=== PATIENT | male | born 1985 | race Caucasian/White ===

== ENCOUNTER 2017-07-21 23:52 | Inpatient (IN) | payer BC ==
[2017-07-22] MEDS ORDERED: Ondansetron 4 MG/2 ML SDV IVPUSH ONE (00:04)
[2017-07-22] MEDS ORDERED: Ketorolac 30 MG/ML SDV IVPUSH ONE (00:04)
[2017-07-22] MEDS ORDERED: Sodium Chloride 0.9% 1,000 ML IV ONE (00:04)
[2017-07-22 00:26] LABS: CHLORIDE,CL 105 mmol/L (98-107); SODIUM,NA 139 mmol/L (136-148)
[2017-07-22] MEDS ORDERED: HYDROmorphone 1 MG/ML Syringe IVPUSH ONE (00:55)
[2017-07-22] MEDS ORDERED: metroNIDAZOLE/Normal Saline 500 MG in Premix Bag 1 BAG IV ONE (00:56)
[2017-07-22] MEDS ORDERED: Levofloxacin/Dextrose 5%-Water 750 MG in Premix Bag 1 BAG IV ONE (01:00)
--- NOTE | 2017-07-22 01:01 | EDM.PDOC ---
ED HPI GENERAL MEDICAL PROBLEM - General Chief Complaint: Abdominal Pain Stated Complaint: STOMACH PAIN Time Seen by Provider: 07/22/17 01:01 - History of Present Illness INITIAL COMMENTS - FREE TEXT/NARRATIVE: HISTORY AND PHYSICAL: History of present illness: Patient 31-year-old male presents with concern of upper abdominal pain worse over the last 24 hours patient has associated nausea vomiting denies diarrhea denies fever chills denies urinary symptoms Review of systems: As per history of present illness and below otherwise all systems reviewed and negative. Past medical history: As per history of present illness and as reviewed below otherwise noncontributory. Surgical history: As per history of present illness and as reviewed below otherwise noncontributory. Social history: No reported history of drug or alcohol abuse. Family history: As per history of present illness and as reviewed below otherwise noncontributory. Physical exam: HEENT: Atraumatic, normocephalic, pupils reactive, negative for conjunctival pallor or scleral icterus, mucous membranes moist, throat clear, neck supple, nontender, trachea midline. Lungs: Clear to auscultation, breath sounds equal bilaterally, chest nontender. Heart: S1S2, regular, negative for clicks, rubs, or JVD. Abdomen: Soft, nondistended, tenderness in epigastric and right upper quadrant deep palpation no rebound no guarding. Negative for masses or hepatosplenomegaly. Negative for costovertebral tenderness. Pelvis: Stable nontender. Genitourinary: Deferred. Rectal: Deferred. Extremities: Atraumatic, negative for cords or calf pain. Neurovascular unremarkable. Neuro: Awake, alert, oriented. Cranial nerves II through XII unremarkable. Cerebellum unremarkable. Motor and sensory unremarkable throughout. Exam nonfocal. Diagnostics: CBC CMP UA lipase CT of the pelvis Therapeutics: Normal saline 1 L bolus and Toradol 30 mg IV Dilaudid 1 mg IV Levaquin 750 IV Flagyl 500 IV Impression: #1 abdominal pain #2 leukocytosis #3 cholelithiasis rule out cholecystitis Definitive disposition and diagnosis as appropriate pending reevaluation and review of above. Upper Abdomen Pain Score (Numeric/FACES): 10 - Related Data Allergies Allergy/AdvReac Type Severity Reaction Status Date / Time No Known Allergies Allergy Verified 07/21/17 23:56 Home Meds: Home Meds . [No Known Home Meds] 07/21/17 [History] Past Medical History - Past Health History Medical/Surgical History: Denies Medical/Surgical History Social & Family History - Family History Family Medical History: Noncontributory - Tobacco Use Smoking Status *Q: Current Every Day Smoker Years of Tobacco use: 10 Packs/Tins Daily: 0.5 - Caffeine Use Caffeine Use: Reports: None - Recreational Drug Use Recreational Drug Use: No ED ROS GENERAL - Review of Systems Review Of Systems: ROS reveals no pertinent complaints other than HPI. ED EXAM, GENERAL - Physical Exam Exam: See Below (See dictation) Course - Vital Signs Last Recorded V/S: Last Vital Signs Temp 36.1 C 07/21/17 23:54 Pulse 100 07/21/17 23:54 Resp 24 H 07/21/17 23:54 BP 129/86 07/21/17 23:54 Pulse Ox 99 07/21/17 23:54 - Orders/Labs/Meds Orders: Active Orders 24 hr Category Date Time Status Abdomen Pelvis wo Cont [CT] Stat Exams 07/22/17 00:03 Taken UA W/MICROSCOPIC [URIN] Stat Lab 07/22/17 00:40 Ordered Sodium Chloride 0.9% [Normal Saline] 1,000 ml Med 07/22/17 00:04 Active IV .Bolus Medication Orders Sodium Chloride (Normal Saline) 1,000 mls @ 999 mls/hr IV .Bolus ONE Stop: 07/22/17 01:04 Last Admin: 07/22/17 00:12 Dose: 999 mls/hr Labs: Laboratory Tests 07/22/17 07/22/17 07/22/17 Range/Units 00:01 00:01 00:40 WBC 14.20 H (4.0-11.0) K/uL RBC 5.13 (4.50-5.90) M/uL Hgb 16.5 (13.0-17.0) g/dL Hct 48.2 (38.0-50.0) % MCV 94.0 (80.0-98.0) fL MCH 32.2 H (27.0-32.0) pg MCHC 34.2 (31.0-37.0) g/dL RDW Std Deviation 48.7 (28.0-62.0) fl RDW Coeff of [place] 14 (11.0-15.0) % Plt Count 387 (150-400) K/uL MPV 10.00 (7.40-12.00) fL Neut % (Auto) 54.7 (48.0-80.0) % Lymph % (Auto) 34.2 (16.0-40.0) % [place] % (Auto) 8.7 (0.0-15.0) % Eos % (Auto) 2.1 (0.0-7.0) % Baso % (Auto) 0.3 (0.0-1.5) % Neut # (Auto) 7.8 H (1.4-5.7) K/uL Lymph # (Auto) 4.9 H (0.6-2.4) K/uL [place] # (Auto) 1.2 H (0.0-0.8) K/uL Eos # (Auto) 0.3 (0.0-0.7) K/uL Baso # (Auto) 0.0 (0.0-0.1) K/uL Nucleated RBC % 0.0 /100WBC Nucleated RBCs # 0 K/uL Sodium 139 (136-148) mmol/L Potassium 4.1 (3.5-5.1) mmol/L Chloride 105 (98-107) mmol/L Carbon Dioxide 25.8 (21.0-32.0) mmol/L BUN 12 (7.0-18.0) mg/dL Creatinine 1.2 (0.8-1.3) mg/dL Est Cr Clr Drug Dosing TNP Estimated GFR (MDRD) > 60.0 ml/min Glucose 107 H (74-106) mg/dL Calcium 9.4 (8.5-10.1) mg/dL Total Bilirubin 0.4 (0.2-1.0) mg/dL AST 18 (15-37) IU/L ALT 35 (14-63) IU/L Alkaline Phosphatase 111 (46-116) U/L Total Protein 7.5 (6.4-8.2) g/dL Albumin 3.9 (3.4-5.0) g/dL Globulin 3.6 H (2.0-3.5) g/dL Albumin/Globulin Ratio 1.1 L (1.3-2.8) Urine Color YELLOW Urine Appearance SLT CLOUDY Urine pH 8.0 (5.0-8.0) Ur Specific [place] 1.015 (1.001-1.035) Urine Protein NEGATIVE (NEGATIVE) mg/dL Urine Glucose (UA) NEGATIVE (NEGATIVE) mg/dL Urine Ketones NEGATIVE (NEGATIVE) mg/dL Urine Occult Blood NEGATIVE (NEGATIVE) Urine Nitrite NEGATIVE (NEGATIVE) Urine Bilirubin NEGATIVE (NEGATIVE) Urine Urobilinogen 0.2 (<2.0) EU/dL Ur Leukocyte Esterase NEGATIVE (NEGATIVE) Meds: Medications Generic Name Dose Route Start Last Admin Trade Name Freq PRN Reason Stop Dose Admin Sodium Chloride 1,000 mls @ 999 mls/hr 07/22/17 00:04 07/22/17 00:12 Normal Saline IV 07/22/17 01:04 999 mls/hr .Bolus ONE Administration Discontinued Medications Generic Name Dose Route Start Last Admin Trade Name Freq PRN Reason Stop Dose Admin Ketorolac Tromethamine 30 mg 07/22/17 00:04 07/22/17 00:12 Toradol IVPUSH 07/22/17 00:05 30 mg ONETIME ONE Administration Ondansetron HCl 4 mg 07/22/17 00:04 07/22/17 00:12 Zofran IVPUSH 07/22/17 00:05 4 mg ONETIME ONE Administration Departure - Departure Time of Disposition: 01:01 Disposition: Admitted As Inpatient 66 Condition: Good Clinical Impression: Abdominal pain, Leukocytosis, Cholelithiasis - Discharge Information Referrals: PCP,None [Primary Care Provider] - - My Orders Last 24 Hours: My Active Orders 07/22/17 00:03 Abdomen Pelvis wo Cont [CT] Stat 07/22/17 00:04 Sodium Chloride 0.9% [Normal Saline] 1,000 ml IV .Bolus 07/22/17 00:40 UA W/MICROSCOPIC [URIN] Stat - Assessment/Plan Last 24 Hours: My Active Orders 07/22/17 00:03 Abdomen Pelvis wo Cont [CT] Stat 07/22/17 00:04 Sodium Chloride 0.9% [Normal Saline] 1,000 ml IV .Bolus 07/22/17 00:40 UA W/MICROSCOPIC [URIN] Stat
[2017-07-22] MEDS ORDERED: HYDROmorphone 2 MG/ML SDV IVPUSH PRN (02:24)
[2017-07-22] MEDS: Morphine 4 MG/ML Syringe IVPUSH PRN ×2 (02:37→09:13)
[2017-07-22] MEDS: Lactated Ringers 1,000 ML IV SCH ×2 (02:38→11:57)
[2017-07-22 06:58] LABS: CHLORIDE,CL 108 mmol/L (98-107); SODIUM,NA 138 mmol/L (136-148)
[2017-07-22] MEDS ORDERED: metroNIDAZOLE/Normal Saline 500 MG in Premix Bag 1 BAG IV SCH (08:00)
--- NOTE | 2017-07-22 08:24 | PCM.HP ---
H&P History of Present Illness - General Date of Service: 07/22/17 Admit Problem/Dx: Admission Diagnosis/Problem Admission Diagnosis/Problem Abdominal pain Source of Information: Patient History Limitations: Reports: No Limitations - History of Present Illness Initial Comments - Free Text/Narative: This 31 year old male who is otherwise healthy presented to the ED last evening with sudden onset of epigastric pain and RUQ pain. He reports he has never had this before. He ate supper around 7 pm, which consisted of beef. He then showered and was getting ready to bed when this occurred. It did not radiate, it was sharp in nature and mainly located in his epigastric region. He reported vomiting food contents, he feels like from the pain. No other abdominal pain, no black or bloody BMs and no bloody or coffee ground emesis. He reports intermittent heartburn with spicy foods, but nothing significant or daily. He denies heavy NSAID use and no alcohol use. He denies abdominal surgeries or IBD. He denies fevers, URI, chest pain, SOB or troubles urinating. He smokes 1/ 2 ppd cigarettes for about 10 years. No recreational drug use. In the ED slight leukocytosis noted at 14,000, BMP WNL, No elevated in LFTs UA negative. He was treated with Levaquin and Flagyl along with NS bolus. CT of abdomen/pelvis revealed nonobstructive intrarenal calculus within the inferior pole of the right kidney, Cholelithiasis, Moderate amount of stool, Fat containing umbilical hernia. he was admitted inpatient with abdominal pain with cholelithiasis rule out cholecystitis. Upper Abdomen Pain Score (Numeric/FACES): 6 - Related Data Allergies/Adverse Reactions: Allergies Allergy/AdvReac Type Severity Reaction Status Date / Time No Known Allergies Allergy Verified 07/21/17 23:56 Home Medications: Home Meds Acetaminophen/HYDROcodone [[place] 325-5 MG] 1 tab PO Q6H PRN #10 tablet 07/22/17 [Rx] Levofloxacin [Levaquin] 500 mg PO DAILY #5 tab 07/22/17 [Rx] Pantoprazole Sodium [Protonix] 20 mg PO DAILY #30 tablet. 07/22/17 [Rx] Past Medical History - Past Health History Medical/Surgical History: Denies Medical/Surgical History Cardiovascular History: Reports: None. Denies: CAD, High Cholesterol, Hypertension, [place] Respiratory History: Reports: None. Denies: COPD Gastrointestinal History: Reports: None. Denies: Bowel Obstruction, Chronic Constipation, Chronic Diarrhea, GERD, GI Bleed Genitourinary History: Reports: None Musculoskeletal History: Reports: None Psychiatric History: Reports: None Endocrine/Metabolic History: Denies: Diabetes, Type II - Infectious Disease History Infectious Disease History: Reports: Chicken Pox - Past Surgical History Other HEENT Surgeries/Procedures: wears reading glasses Social & Family History - Family History Family Medical History: Noncontributory Neurological: Reports: Other (See Below) Other Neurological Family History: Father-brain tumor Psychiatric: Reports: None Oncologic: Reports: Lung Other Oncologic Family History: mother - Tobacco Use Smoking Status *Q: Current Every Day Smoker Years of Tobacco use: 10 Packs/Tins Daily: 0.5 Used Tobacco, but Quit: No Second Hand Smoke Exposure: Yes - Caffeine Use Caffeine Use: Reports: None - Recreational Drug Use Recreational Drug Use: No - Living Situation & Occupation Occupation: Employed (Here working, orginally from [employer] and [employer].) H&P Review of Systems - Review of Systems: Review Of Systems: See Below General: Reports: No Symptoms. Denies: Fever, Chills, Malaise HEENT: Reports: No Symptoms. Denies: Headaches, Sinus Congestion, Vertigo Pulmonary: Reports: No Symptoms. Denies: Shortness of Breath Cardiovascular: Reports: No Symptoms. Denies: Chest Pain, Edema Gastrointestinal: Denies: Abdominal Pain (not currently having any, very little tenderness), Decreased Appetite, Nausea, Vomiting Genitourinary: Reports: No Symptoms. Denies: Dysuria, Frequency, Burning Musculoskeletal: Reports: No Symptoms. Denies: Neck Pain Skin: Reports: No Symptoms Psychiatric: Reports: No Symptoms Neurological: Reports: No Symptoms Hematologic/Lymphatic: Reports: No Symptoms Immunologic: Reports: No Symptoms Exam - Exam Exam: See Below - Vital Signs Vital Signs: Last Vital Signs Temp 97.9 F 07/22/17 04:00 Pulse 83 07/22/17 04:00 Resp 19 07/22/17 04:00 BP 97/59 L 07/22/17 04:00 Pulse Ox 96 07/22/17 04:00 Weight: 68.901 kg - Exam General: Alert, Oriented, Cooperative HEENT: Conjunctiva Clear, Mucosa Moist & [place], Posterior Pharynx Clear Neck: Supple, Trachea Midline, 2 Lungs: Clear to Auscultation, Normal Respiratory Effort Cardiovascular: Regular Rate, Regular Rhythm GI/Abdominal Exam: Normal Bowel Sounds, Soft, No Organomegaly, No Distention, No Abnormal Bruit, No Mass, Pelvis Stable, Tender (epigastric) Back Exam: Normal Inspection, Full Range of Motion, NT Extremities: Normal Inspection, Normal Range of Motion, Non-Tender, No Pedal Edema, Normal Capillary Refill Neurological: Cranial Nerves Intact, Reflexes Equal Bilateral Neuro Extensive - Mental Status: Alert, Oriented x3, Normal Mood/Affect, Normal Cognition Neuro Extensive - Motor, Sensory, Reflexes: CN II-XII Intact Psychiatric: Alert, Normal Affect, Normal Mood - Patient Data Lab Results Last 24 hrs: Laboratory Results - last 24 hr 07/22/17 07/22/17 07/22/17 Range/Units 00:01 00:01 00:01 WBC 14.20 H (4.0-11.0) K/uL RBC 5.13 (4.50-5.90) M/uL Hgb 16.5 (13.0-17.0) g/dL Hct 48.2 (38.0-50.0) % MCV 94.0 (80.0-98.0) fL MCH 32.2 H (27.0-32.0) pg MCHC 34.2 (31.0-37.0) g/dL RDW Std Deviation 48.7 (28.0-62.0) fl RDW Coeff of [place] 14 (11.0-15.0) % Plt Count 387 (150-400) K/uL MPV 10.00 (7.40-12.00) fL Neut % (Auto) 54.7 (48.0-80.0) % Lymph % (Auto) 34.2 (16.0-40.0) % [place] % (Auto) 8.7 (0.0-15.0) % Eos % (Auto) 2.1 (0.0-7.0) % Baso % (Auto) 0.3 (0.0-1.5) % Neut # (Auto) 7.8 H (1.4-5.7) K/uL Lymph # (Auto) 4.9 H (0.6-2.4) K/uL [place] # (Auto) 1.2 H (0.0-0.8) K/uL Eos # (Auto) 0.3 (0.0-0.7) K/uL Baso # (Auto) 0.0 (0.0-0.1) K/uL Nucleated RBC % 0.0 /100WBC Nucleated RBCs # 0 K/uL Sodium 139 (136-148) mmol/L Potassium 4.1 (3.5-5.1) mmol/L Chloride 105 (98-107) mmol/L Carbon Dioxide 25.8 (21.0-32.0) mmol/L BUN 12 (7.0-18.0) mg/dL Creatinine 1.2 (0.8-1.3) mg/dL Est Cr Clr Drug Dosing TNP Estimated GFR (MDRD) > 60.0 ml/min Glucose 107 H (74-106) mg/dL Calcium 9.4 (8.5-10.1) mg/dL Total Bilirubin 0.4 (0.2-1.0) mg/dL AST 18 (15-37) IU/L ALT 35 (14-63) IU/L Alkaline Phosphatase 111 (46-116) U/L Total Protein 7.5 (6.4-8.2) g/dL Albumin 3.9 (3.4-5.0) g/dL Globulin 3.6 H (2.0-3.5) g/dL Albumin/Globulin Ratio 1.1 L (1.3-2.8) Lipase 249 (73-393) U/L Urine Color Urine Appearance Urine pH (5.0-8.0) Ur Specific [place] (1.001-1.035) Urine Protein (NEGATIVE) mg/dL Urine Glucose (UA) (NEGATIVE) mg/dL Urine Ketones (NEGATIVE) mg/dL Urine Occult Blood (NEGATIVE) Urine Nitrite (NEGATIVE) Urine Bilirubin (NEGATIVE) Urine Urobilinogen (<2.0) EU/dL Ur Leukocyte Esterase (NEGATIVE) Urine RBC (0-2/HPF) Urine WBC (0-5/HPF) Ur Epithelial Cells (NONE-FEW) Amorphous Sediment (NEGATIVE) Urine Bacteria (NEGATIVE) 07/22/17 07/22/17 07/22/17 Range/Units 00:40 05:31 05:31 WBC 14.42 H (4.0-11.0) K/uL RBC 4.53 (4.50-5.90) M/uL Hgb 14.2 (13.0-17.0) g/dL Hct 42.8 (38.0-50.0) % MCV 94.5 (80.0-98.0) fL MCH 31.3 (27.0-32.0) pg MCHC 33.2 (31.0-37.0) g/dL RDW Std Deviation 48.7 (28.0-62.0) fl RDW Coeff of [place] 14 (11.0-15.0) % Plt Count 349 (150-400) K/uL MPV 10.20 (7.40-12.00) fL Neut % (Auto) 74.7 (48.0-80.0) % Lymph % (Auto) 15.3 L (16.0-40.0) % [place] % (Auto) 9.1 (0.0-15.0) % Eos % (Auto) 0.7 (0.0-7.0) % Baso % (Auto) 0.2 (0.0-1.5) % Neut # (Auto) 10.8 H (1.4-5.7) K/uL Lymph # (Auto) 2.2 (0.6-2.4) K/uL [place] # (Auto) 1.3 H (0.0-0.8) K/uL Eos # (Auto) 0.1 (0.0-0.7) K/uL Baso # (Auto) 0.0 (0.0-0.1) K/uL Nucleated RBC % 0.0 /100WBC Nucleated RBCs # 0 K/uL Sodium 138 (136-148) mmol/L Potassium 4.2 (3.5-5.1) mmol/L Chloride 108 H (98-107) mmol/L Carbon Dioxide 26.5 (21.0-32.0) mmol/L BUN 13 (7.0-18.0) mg/dL Creatinine 1.0 (0.8-1.3) mg/dL Est Cr Clr Drug Dosing 75.69 Estimated GFR (MDRD) > 60.0 ml/min Glucose 99 (74-106) mg/dL Calcium 8.5 (8.5-10.1) mg/dL Total Bilirubin 0.6 (0.2-1.0) mg/dL AST 34 (15-37) IU/L ALT 43 (14-63) IU/L Alkaline Phosphatase 92 (46-116) U/L Total Protein 6.1 L (6.4-8.2) g/dL Albumin 3.3 L (3.4-5.0) g/dL Globulin 2.8 (2.0-3.5) g/dL Albumin/Globulin Ratio 1.2 L (1.3-2.8) Lipase (73-393) U/L Urine Color YELLOW Urine Appearance SLT CLOUDY Urine pH 8.0 (5.0-8.0) Ur Specific [place] 1.015 (1.001-1.035) Urine Protein NEGATIVE (NEGATIVE) mg/dL Urine Glucose (UA) NEGATIVE (NEGATIVE) mg/dL Urine Ketones NEGATIVE (NEGATIVE) mg/dL Urine Occult Blood NEGATIVE (NEGATIVE) Urine Nitrite NEGATIVE (NEGATIVE) Urine Bilirubin NEGATIVE (NEGATIVE) Urine Urobilinogen 0.2 (<2.0) EU/dL Ur Leukocyte Esterase NEGATIVE (NEGATIVE) Urine RBC NONE SEEN (0-2/HPF) Urine WBC 0-1 (0-5/HPF) Ur Epithelial Cells NOT SEEN (NONE-FEW) Amorphous Sediment MODERATE (NEGATIVE) Urine Bacteria FEW (NEGATIVE) Result Diagrams: 07/22/17 05:31 07/22/17 05:31 *Q Meaningful Use (ADM) - VTE Risk Assess *Q Each Risk Factor Represents 1 Point: None Total Score 1 Point Risk Factors: 0 Each Risk Factor Represents 2 Points: None Total Score 2 Point Risk Factors: 0 Each Risk Factor Represents 3 Points: None Total Score 3 Point Risk Factors: 0 Each Risk Factor Represents 5 Points: None Total Score 5 Point Risk Factors: 0 Venous Thromboembolism Risk Factor Score *Q: 0 - Problem List (1) Abdominal pain SNOMED Code(s): 15153564 ICD Code: R10.9 - UNSPECIFIED ABDOMINAL PAIN Status: Acute Current Visit : Yes Qualifiers: Abdominal location: epigastric Qualified Code(s): R10.13 - Epigastric pain (2) Cholelithiasis SNOMED Code(s): 086429674 ICD Code: K80.20 - CALCULUS OF GALLBLADDER W/O CHOLECYSTITIS W/O OBSTRUCTION Status: Acute Current Visit: Yes Qualifiers: Cholelithiasis location: gallbladder Cholecystitis presence: without cholecystitis Biliary obstruction: without biliary obstruction Qualified Code(s): K80.20 - Calculus of gallbladder without cholecystitis without obstruction (3) Leukocytosis SNOMED Code(s): 527138595, 779425596 ICD Code: D72.829 - ELEVATED WHITE BLOOD CELL COUNT, UNSPECIFIED Status: Acute Current Visit: Yes Problem List Initiated/Reviewed/Updated: Yes Orders Last 24hrs: Active Orders 24 hr Category Date Time Status Patient Status [ADT] Stat ADT 07/22/17 01:03 Active Vital Signs [RC] Q4H Care 07/22/17 02:26 Active NPO [Nothing Per Oral Diet] [DIET] Diet 07/22/17 Breakfast Active Abdomen Pelvis wo Cont [CT] Stat Exams 07/22/17 00:03 Taken UA W/MICROSCOPIC [URIN] Stat Lab 07/22/17 00:40 Ordered HYDROmorphone [Dilaudid] Med 07/22/17 02:24 Active 1 - 2 mg IVPUSH Q3H PRN Lactated Ringers [Ringers, Lactated] 1,000 ml Med 07/22/17 02:30 Active IV ASDIRECTED Morphine Med 07/22/17 02:24 Active 2 mg IVPUSH Q2H PRN metroNIDAZOLE/Normal Saline [Flagyl 500 MG in NS 100 ML Med 07/22/17 08:00 Active ] 500 mg Premix Bag 1 bag IV Q8H Medication Orders Hydromorphone HCl (Dilaudid) 1 - 2 mg IVPUSH Q3H PRN PRN Reason: Pain Lactated Ringer's (Ringers, Lactated) 1,000 mls @ 125 mls/hr IV ASDIRECTED BIJAN Last Admin: 07/22/17 02:38 Dose: 125 mls/hr Metronidazole 500 mg/ Premix 100 mls @ 100 mls/hr IV Q8H BIJAN Morphine Sulfate (Morphine) 2 mg IVPUSH Q2H PRN PRN Reason: Pain Last Admin: 07/22/17 02:37 Dose: 2 mg Assessment/Plan Comment:: This 31 year old male admitted with epigastric abdominal pain 1. Epigastric abdominal pain: Improved this morning, but still having some pain. No nausea/vomiting. Leukocytosis about the same this am. Continue Levaquin and Flagyl for now. Continue IVFs. Discussed case with Dr Li, general surgery. he will see patient once Abd U/S is complete. Patient very eager to be discharged today, saying he will not stay another day. But agreed to see surgeon and have US today. Continue NPO for now and await US results and recommendations from Dr Barrientos. VTE prophylaxis: SCDS only. Dispo: 1-2 days pending improvement 12:30 Dr Barrientos visited with patient. Will set up for outpatient appointment and outpatient cholecystectomy. He recommends allowing him to eat, if he tolerates this ok then to discharge him home with Levaquin 500 mg Daily for 5 days and follow up with him in 2 weeks. Regular low fat diet at home. Discharge Plan: Patient tolerated lunch diet well. Small amount of pain. No nausea or vomiting and no fevers. He continues to want to go home and has been seen by Dr Barrientos who agrees with discharge home. He will go home with Low fat diet, Levaquin 500 mg daily for 5 days and Protonix 20 mg daily. He is to return to the ED or clinic if pain were to worsen, he starts vomiting/nausea or fevers. He verbalized understanding. He continues to deny wanting to stay tonight and very adamant about going home today.
--- NOTE | 2017-07-22 10:09 | US ---
EXAMINATION: Right upper quadrant ultrasound HISTORY: Pain COMPARISON: None TECHNIQUE: Grayscale and color Doppler Doppler images obtained of the right upper quadrant. FINDINGS: Pancreas is not well characterized. Shadowing gallstones are noted within the gallbladder w ithout gallbladder wall thickening or pericholecystic fluid. Common bile duct measures 6 mm. The live r is normal in contour and echotexture. The right kidney measures 12.1 cm [id number] without eviden ce of hydronephrosis. The Sonographic Tolentino sign is reported positive. No ascites noted. IMPRESSION: 1. Cholelithiasis with a reported positive sonographic Tolentino sign. Correlate clinically for cholecys titis.
[2017-07-22] MEDS ORDERED: Pantoprazole 40 MG Vial IVPUSH ONE (13:09)
--- NOTE | 2017-07-22 14:03 | CT ---
EXAM DATE: 07/22/17 PATIENT'S AGE: 31 Patient: VALENTINE PICHARDO Facility: [place], [place] Site Site : 1985 Study: CT Abdomen/Pelvis without contrast [id number]/[id number] 12:41:36 AM Ordering Physician: Doctor Martinez Final Report: INDICATION: UPPER MIDDLE ABODMINAL CRAMPING/PAIN FOR 3 HOURS WITH 1 EPISODE OF VOMITING. TECHNIQUE: CT abdomen and pelvis without contrast. COMPARISON: None FINDINGS: Lower chest: Unremarkable. Liver: Unremarkable. Spleen: Unremarkable. Pancreas: Unremarkable. Gallbladder and bile ducts: Cholelithiasis. Kidneys: Nonobstructive intrarenal calculus within the inferior pole of the right kidney. Adrenal glands: Unremarkable. GI tract: Moderate amount of stool. Appendix is unremarkable. Vascular structures: Unremarkable. Lymph nodes: Unremarkable. Miscellaneous: Fat containing umbilical hernia. No free air or significant free fluid. Pelvic Organs: Enlarged prostate. Bones: Unremarkable for age. IMPRESSION: 1. Nonobstructive intrarenal calculus within the inferior pole of the right kidney. 2. Cholelithiasis. 3. Moderate amount of stool. 4. Fat containing umbilical hernia. Dictated by Faisal Langley MD @ 07/22/2017 12:48:14 AM Dictated by: Faisal Langley MD @ 07/22/2017 00:48:26 (Electronic Signature) Report Signed by Proxy. [facility]
--- NOTE | 2017-07-22 14:39 | PCM.SN ---
- Free Text/Narrative Note: pt seen, chart reviewed; symptomatic cholelithiasis; us and ct reviewed; ok to start po diet, low fat, keep low fat diet till seen in office; thanks for the consult and care of this nice pleasant gentleman; [phone]
[2017-07-23] MEDS ORDERED: Levofloxacin/Dextrose 5%-Water 750 MG in Premix Bag 1 BAG IV SCH (00:30)
--- NOTE | 2017-07-23 08:18 | CONS ---
DATE OF CONSULTATION: 07/22/2017 DATE OF : 1985 PRIMARY CARE PHYSICIAN: None PCP Consult was called in, patient seen shortly after. Concerning question is right upper quadrant pain. HISTORY OF PRESENT ILLNESS: The patient is a 31-year-old gentleman seen in the emergency room and admitted to medical service for acute onset of abdominal pain. The pain has been sharp, 9 to 10 on a pain scale and right upper quadrant. No radiation to the back. Subsequent workup included CAT scan, and ultrasound shows gallstones, no pericholecystic fluid, no wall thickening. Surgery was consulted. The patient denied prior episode. Denied jaundice. Denied dark urine. Denied white stool. PAST MEDICAL HISTORY: Significant for no diabetes, HI, CVA, or hypertension. The patient is a current everyday smoker and denied alcohol use. ALLERGIES AND MEDICATION: Please refer to nursing for details. PAST SURGICAL HISTORY: None. FAMILY HISTORY: Noncontributory. REVIEW OF SYSTEMS: Same as history of present illness. PHYSICAL EXAMINATION: GENERAL: A very pleasant, nice gentleman, in no acute distress. HEENT: Normocephalic and atraumatic. Sclerae anicteric. LUNGS: Clear to auscultation. HEART: Regular rate and rhythm. ABDOMEN: Soft, nondistended. No pulsating tender midline abdominal structure. No surgical scar. No hernia. LABORATORY DATA: Upon consultation, liver function tests within normal limit. White count 14,000. IMPRESSION: Symptomatic cholelithiasis. We will proceed with scheduling for elective gallbladder surgery. The patient can be put on a low-fat, regular diet at home and have a followup appointment with me in 2 weeks and probably would be able to schedule surgery in 2 or 3 weeks. The patient agreed to that. As always, thank you for the kind referral. PAOLA / OFELIA /[id number]
== END 2017-07-22 14:30 | disposition home or self-care (01) ==
LOC: MW.ED 23:52 → MW.MS 07-22 01:03
PROVIDERS: ADMIT Internal Medicine; ATTEND Internal Medicine
DX: K80.20 Calculus of gallbladder without cholecystitis without obstruction (principal); R10.13 Epigastric pain; D72.829 Elevated white blood cell count, unspecified; F17.210 Nicotine dependence, cigarettes, uncomplicated; Z79.899 Other long term (current) drug therapy
CPT/HCPCS: 74176; 74176-26; 76705; 76705-26; 80053; 81001; 83690; 85025; 96361; 96365; 96368; 96375; 99285-25; C9113; J1170; J1885; J1956; J2270; J2405; J7040; J7120

== ENCOUNTER 2017-08-24 08:03 | Day surgery (SDC) | payer BC, OTHER ==
[~2017-08-24 08:03] MED LIST: Bupivacaine 0.5% 30 ML SDV ONE; Glycopyrrolate 0.2 MG/ML SDV ONE; Ketorolac 30 MG/ML SDV ONE; Lidocaine 2% 5 ML SDV ONE; Midazolam 1 MG/ML 2 ML SDV ONE; Neostigmine Methylsulfate 1 MG/ML 5 ML Syringe ONE; Ondansetron 4 MG/2 ML SDV ONE; Propofol 200 MG/20 ML SDV ONE; Rocuronium 10 MG/ML 10 ML Syringe ONE; Sodium Chloride 0.9% 10 ML Syringe FLUSH PRN; Sodium Chloride 0.9% 2.5 ML Syringe FLUSH PRN; ceFAZolin 1 GM in Premix Bag 1 BAG IV ONE; fentaNYL 100 MCG/2 ML SDV ONE; fentaNYL 250 MCG/5 ML SDV ONE
--- NOTE | 2017-08-24 08:39 | PCM.PREANE ---
Preanesthetic Assessment - Anesthesia/Transfusion/Family Hx Anesthesia History: No Prior Anesthesia Family History of Anesthesia Reaction: No Transfusion History: No Prior Transfusion(s) Intubation History: Unknown - Review of Systems General: No Symptoms Pulmonary: No Symptoms Cardiovascular: No Symptoms Gastrointestinal: Abdominal Pain Neurological: No Symptoms Other: Reports: None - Physical Assessment Height: 1.63 m Weight: 66.224 kg ASA Class: 2 Mental Status: Alert & Oriented x3 Airway Class: Mallampati = 2 Dentition: Reports: Normal Dentition, [place](s) (x1 lower right) Thyro-Mental Finger Breadths: 3 Mouth Opening Finger Breadths: 3 ROM/Head Extension: Full Lungs: Clear to Auscultation, Normal Respiratory Effort Cardiovascular: Regular Rate, Regular Rhythm - Allergies Allergies/Adverse Reactions: Allergies Allergy/AdvReac Type Severity Reaction Status Date / Time No Known Allergies Allergy Verified 08/18/17 16:50 - Blood Blood Available: No - Anesthesia Plan Pre-Op Medication Ordered: None - Acknowledgements Anesthesia Type Planned: General Anesthesia Pt an Appropriate Candidate for the Planned Anesthesia: Yes Alternatives and Risks of Anesthesia Discussed w Pt/Guardian: Yes Pt/Guardian Understands and Agrees with Anesthesia Plan: Yes PreAnesthesia Questionnaire - Past Health History Medical/Surgical History: Denies Medical/Surgical History HEENT History: Reports: Other (See Below) Other HEENT History: wears glasses Cardiovascular History: Reports: None. Denies: CAD, High Cholesterol, Hypertension, [place] Respiratory History: Reports: None. Denies: COPD Gastrointestinal History: Reports: GERD Genitourinary History: Reports: Renal Calculus Musculoskeletal History: Reports: Fracture Other Musculoskeletal History: hx of fx left arm Psychiatric History: Reports: None - Infectious Disease History Infectious Disease History: Reports: Chicken Pox - Past Surgical History Other HEENT Surgeries/Procedures: wears reading glasses - SUBSTANCE USE Smoking Status *Q: Current Every Day Smoker (1/2 ppd) Tobacco Use Within Last Twelve Months: Cigarettes Recreational Drug Use History: No - HOME MEDS Home Medications: Home Meds Acetaminophen/HYDROcodone [Ralph 325-5 MG] 1 tab PO Q6H PRN #10 tablet 07/22/17 [Rx] Pantoprazole Sodium [Protonix] 20 mg PO DAILY 08/18/17 [History] - CURRENT (IN HOUSE) MEDS Current Meds: Current Medications Lactated Ringer's (Ringers, Lactated) 1,000 mls @ 125 mls/hr IV ASDIRECTED BIJAN Sodium Chloride (Saline Flush) 10 ml FLUSH ASDIRECTED PRN PRN Reason: Keep Vein Open Sodium Chloride (Saline Flush) 2.5 ml FLUSH ASDIRECTED PRN PRN Reason: Keep Vein Open Discontinued Medications Bupivacaine HCl (Marcaine 0.5%) Confirm Administered Dose 30 ml .ROUTE .STK-MED ONE Stop: 08/24/17 07:46 Fentanyl (Sublimaze) Confirm Administered Dose 100 mcg .ROUTE .STK-MED ONE Stop: 08/24/17 07:56 Fentanyl (Sublimaze) Confirm Administered Dose 250 mcg .ROUTE .STK-MED ONE Stop: 08/24/17 07:57 Glycopyrrolate (Robinul) Confirm Administered Dose 0.6 mg .ROUTE .STK-MED ONE Stop: 08/24/17 07:59 Cefazolin Sodium/Dextrose 1 gm (/ Premix) 50 mls @ 100 mls/hr IV ONETIME ONE Stop: 08/20/17 11:02 Cefazolin Sodium/Dextrose (Ancef) Confirm Administered Dose 50 mls @ as directed .ROUTE .STK-MED ONE Stop: 08/24/17 08:07 Ketorolac Tromethamine (Toradol) Confirm Administered Dose 30 mg .ROUTE .STK- MED ONE Stop: 08/24/17 07:59 Lidocaine (Xylocaine-Mpf 2%) Confirm Administered Dose 10 ml .ROUTE .STK-MED ONE Stop: 08/24/17 07:56 Midazolam HCl (Versed 1 Mg/Ml) Confirm Administered Dose 2 mg .ROUTE .STK-MED ONE Stop: 08/24/17 07:56 Neostigmine Methylsulfate (Neostigmine) Confirm Administered Dose 5 mg .ROUTE .STK-MED ONE Stop: 08/24/17 07:59 Ondansetron HCl (Zofran) Confirm Administered Dose 8 mg .ROUTE .STK-MED ONE Stop: 08/24/17 07:59 Propofol (Diprivan 20 Ml) Confirm Administered Dose 400 mg .ROUTE .STK-MED ONE Stop: 08/24/17 07:56 Rocuronium [place] (Zemuron) Confirm Administered Dose 100 mg .ROUTE .STK-MED ONE Stop: 08/24/17 07:59
[2017-08-24] MEDS ORDERED: Scopolamine 1.5 MG Transdermal Patch ONE (08:50)
[2017-08-24] MEDS ORDERED: Acetaminophen/oxyCODONE 325-5 MG Tab PO PRN (10:47)
--- NOTE | 2017-08-24 10:47 | PCM.OPNOTE ---
- General Post-Op/Procedure Note Date of Surgery/Procedure: 08/24/17 Operative Procedure(s): laparoscopic cholecystectomy Findings: Moderate- Severely inflamed gallbladder encased in omentum and adhered densely to surrounding structures. Pre Op Diagnosis: Symptomatic cholelithiasis Post-Op Diagnosis: Acute cholecystitis Anesthesia Technique: General ET Tube Primary Surgeon: Heidi Cook Fluid Replacement, Intraop: 2,300 Output, Urine Amount: 45 EBL in mLs: 100 Condition: Good
[2017-08-24] MEDS: fentaNYL 100 MCG/2 ML SDV IVPUSH PRN ×4 (11:24→11:49)
--- NOTE | 2017-08-24 11:59 | PCM.POSTAN ---
POST ANESTHESIA ASSESSMENT - MENTAL STATUS Mental Status: Alert, Oriented - RESPIRATORY Respiratory Status: Respiratory Rate WNL, Airway Patent, O2 Saturation Stable - CARDIOVASCULAR CV Status: Pulse Rate WNL, Blood Pressure Stable - GASTROINTESTINAL GI Status: No Symptoms - PAIN Pain Score: 6 - POST OP HYDRATION Hydration Status: Adequate & Stable - OBSERVATIONS Free Text/Narrative:: no anesthesia problems
--- NOTE | 2017-08-24 13:34 | OR ---
SURGEON: JUDITH MOSQUEDA MD DATE OF PROCEDURE: 08/24/2017 PREOPERATIVE DIAGNOSIS: Symptomatic cholelithiasis. POSTOPERATIVE DIAGNOSIS: Acute cholecystitis. PROCEDURE PERFORMED: Laparoscopic cholecystectomy. ANESTHESIA: General endotracheal anesthesia. FLUIDS: 3300 mL of crystalloid. ESTIMATED BLOOD LOSS: 100 mL. URINE OUTPUT: 45 mL. FINDINGS: Moderate to severely inflamed gallbladder encased in omentum. Dense adhesions to the surrounding structures. COMPLICATIONS: None. INDICATIONS: The patient is a 31-year-old male, who presented to the ER with right upper quadrant pain. An ultrasound showed cholelithiasis with no evidence of cholecystitis. The patient was seen by me in clinic. We discussed the pathophysiology of biliary disease. I explained that the treatment for symptomatic cholelithiasis is removal of the gallbladder. We discussed the laparoscopic and open approaches. I explained that I would try laparoscopically, but if I was unable to do this safely, I would convert to open. We discussed the expected perioperative course as well as the risks including bleeding, infection, or damage to surrounding structures. The patient verbalized understanding and wishes to proceed. PROCEDURE IN DETAIL: The patient was brought into the OR and placed on the OR table in supine position. A time-out was completed verifying the patient's name, age, date of , allergies, and procedure to be performed. General endotracheal anesthesia was induced. The left arm was tucked at the patient's side and a Arceo catheter placed. The abdomen was prepped and draped in usual standard fashion. The infraumbilical fold was anesthetized with 0.5% Marcaine plain. An 11 blade was used to make an incision along the infraumbilical fold. Cautery was used to dissect down to the level of subcutaneous fat. S retractors were used to bluntly dissect down to the level of fascia. The fascia was then elevated with Karin's and incised sharply with the curved Peacock scissors. The peritoneum was identified. This was elevated with hemostats and incised sharply with the Metzenbaum scissors. Entry into the abdomen was palpated. A 12 mm Jorge trocar was placed through this incision and the abdomen insufflated. A 5 mm 30-degree scope was inserted in the abdomen and I inspected the area underneath my initial trocar incision. No damage to surrounding structures was noted. The patient was placed in reverse Trendelenburg position and airplaned slightly to the left. 5 mm trocars were placed in the following locations under direct visualization, one in the epigastric area, one in the right lateral flank, and one in the 2 fingerbreadths below the right subcostal margin in the midclavicular line. The dome of the gallbladder was grasped with an atraumatic grasper through the right lateral flank port and elevated. The body of the gallbladder and infundibulum was completely encased within inflamed omentum. These adhesions extended onto the liver bed. Using a combination of blunt dissection and hook cautery, I was able to take down these adhesions. The adhesions along the medial liver bed were especially dense. I was able to take some of these down, however, while doing so, a small tear was made along the liver parenchyma. Surgicel was placed in the tear and hemostasis was achieved. The infundibulum was identified. This was completely encased in fat and dense inflammatory adhesions. Meticulous, careful dissection was undertaken in order to clear away the cystic duct and cystic artery. This was especially difficult, given the [id number] amount of inflammation around the gallbladder itself. I finally able to clear away 1/3rd of the cystic plate and identify clearly the cystic duct and artery. These were doubly clipped and ligated. The gallbladder was then removed from the cystic plate using electrocautery. There was a fair amount of edema between the gallbladder and the liver bed. The gallbladder was then placed in an EndoCatch bag and removed through the infraumbilical port site. The 12 mm Jorge trocar was put back in place and I reinspected my operative field. I copiously irrigated the right upper quadrant to clear away any blood or clots. Because of the inflammation around the gallbladder, the patient had ~100ml of blood loss from oozing liver bed and inflamed omentum. Endo Avitene and Surgicel were placed in the gallbladder fossa. The remainder of the blood in the abdomen was suctioned out. More Surgicel was then placed into the operative field. Pressure was applied for 1 minute and I reinspected my field. It appeared to be hemostatic. There was one small tongue of omentum that continued to ooze so a small clip was applied to the end of the fat. This stopped the bleeding. The 5 mm trocars were removed under direct visualization, and the abdomen allowed to desufflate. The 12 mm trocar was removed. The fascia at the infraumbilical port site was closed with interrupted 0 Vicryl sutures. The subcutaneous fat layer was closed with interrupted 3-0 Vicryl sutures. The skin was closed with a running 4-0 Monocryl stitch. The 5 mm trocar sites were closed with interrupted 4-0 Monocryl suture. Steri-Strips and sterile dressings were applied. The patient tolerated the procedure well and was taken to PACU in stable condition. VU GILBERT /[id number] SILVANO
[2017-08-24] MEDS ORDERED: HYDROmorphone 2 MG/ML SDV IVPUSH ONE (14:08)
[2017-08-24] MEDS ORDERED: Cyclobenzaprine 5 MG Tab PO PRN (14:28)
[2017-08-24] MEDS ORDERED: Calcium Carbonate 500 MG Tab.Chew PO PRN (14:28)
[2017-08-24] MEDS ORDERED: Ondansetron 4 MG/2 ML SDV IVPUSH PRN (15:13)
[2017-08-24] MEDS ORDERED: Promethazine 25 MG/ML SDV IM PRN (15:13)
[2017-08-24] MEDS ORDERED: HYDROmorphone 1 MG/ML Syringe IVPUSH PRN (15:13)
[2017-08-24] MEDS ORDERED: diphenhydrAMINE 25 MG Cap PO PRN (15:13)
[2017-08-24] MEDS ORDERED: Pantoprazole 40 MG Vial IVPUSH ONE (15:30)
[2017-08-24] MEDS ORDERED: HYDROmorphone/Normal Saline 6 MG/30 ML PCA Vial IV PRN (15:39)
[2017-08-24] MEDS ORDERED: Lactated Ringers 1,000 ML IV SCH (16:00)
--- NOTE | 2017-08-24 16:07 | PCM.SURGPN ---
- General Info Date of Service: 08/24/17 Date of Surgery/Procedure: 08/24/17 POD#: 0 Post-Op Diagnosis: Moderate-severe acute cholecystitis Functional Status: Reports: Other (Came to see patient in post operative unit. Patient c/o severe epigastric burning and pain. Patient has been given oral percocet and IV dilaudid with minimal improvement in his symptoms. Denies nausea. Has not vomiting. Vitals have been stable. ) - Review of Systems General: Reports: No Symptoms Pulmonary: Reports: No Symptoms Cardiovascular: Reports: No Symptoms Gastrointestinal: Reports: Abdominal Pain - Patient Data Vitals - Most Recent: Last Vital Signs Temp 36.5 C 08/24/17 12:00 Pulse 87 08/24/17 15:30 Resp 15 08/24/17 15:30 BP 108/63 08/24/17 15:30 Pulse Ox 98 08/24/17 15:30 Weight - Most Recent: 66.224 kg I&O - Last 24 Hours: Intake & Output 08/24/17 08/24/17 08/24/17 06:59 14:59 22:59 Intake Total 5100 2800 Output Total 90 45 Balance 5010 2755 Lab Results Last 24 Hrs: Laboratory Results - last 24 hr 08/24/17 Range/Units 15:37 WBC 19.01 H (4.0-11.0) K/uL RBC 4.68 (4.50-5.90) M/uL Hgb 15.0 (13.0-17.0) g/dL Hct 44.3 (38.0-50.0) % MCV 94.7 (80.0-98.0) fL MCH 32.1 H (27.0-32.0) pg MCHC 33.9 (31.0-37.0) g/dL RDW Std Deviation 48.1 (28.0-62.0) fl RDW Coeff of Marialuisa 14 (11.0-15.0) % Plt Count 311 (150-400) K/uL MPV 10.00 (7.40-12.00) fL Nucleated RBC % 0.0 /100WBC Nucleated RBCs # 0 K/uL Med Orders - Current: Current Medications Calcium Carbonate/Glycine (Tums) 500 mg PO Q2HR PRN PRN Reason: Indigestion Last Admin: 08/24/17 14:47 Dose: 500 mg Cyclobenzaprine HCl (Flexeril) 5 mg PO TID PRN PRN Reason: Muscle Spasm Last Admin: 08/24/17 14:47 Dose: 5 mg Diphenhydramine HCl (Benadryl) 25 mg PO Q4H PRN PRN Reason: Itching Hydromorphone HCl (Dilaudid Tank Hoop Bender 6 Mg In Ns 30 Ml) 0 mg IV ASDIRECTED PRN; Protocol PRN Reason: Abdominal Pain Lactated Ringer's (Ringers, Lactated) 1,000 mls @ 125 mls/hr IV ASDIRECTED BIJAN Lactated Ringer's (Ringers, Lactated) 1,000 mls @ 1,000 mls/hr IV .BOLUS BIJAN Ondansetron HCl (Zofran) 4 mg IVPUSH Q6H PRN PRN Reason: Nausea/Vomiting Promethazine HCl (Phenergan) 12.5 mg IM Q6H PRN PRN Reason: Nausea Sodium Chloride (Saline Flush) 10 ml FLUSH ASDIRECTED PRN PRN Reason: Keep Vein Open Sodium Chloride (Saline Flush) 2.5 ml FLUSH ASDIRECTED PRN PRN Reason: Keep Vein Open Discontinued Medications Bupivacaine HCl (Marcaine 0.5%) Confirm Administered Dose 30 ml .ROUTE .STK-MED ONE Stop: 08/24/17 07:46 Fentanyl (Sublimaze) Confirm Administered Dose 100 mcg .ROUTE .STK-MED ONE Stop: 08/24/17 07:56 Fentanyl (Sublimaze) Confirm Administered Dose 250 mcg .ROUTE .STK-MED ONE Stop: 08/24/17 07:57 Fentanyl (Sublimaze) 50 mcg IVPUSH Q5M PRN PRN Reason: Pain (severe 7-10) Stop: 08/25/17 09:17 Last Admin: 08/24/17 11:49 Dose: 50 mcg Glycopyrrolate (Robinul) Confirm Administered Dose 0.6 mg .ROUTE .STK-MED ONE Stop: 08/24/17 07:59 Hydromorphone HCl (Dilaudid) 1 mg IVPUSH ONETIME ONE Stop: 08/24/17 14:09 Last Admin: 08/24/17 14:24 Dose: 1 mg Hydromorphone HCl (Dilaudid) 0.5 mg IVPUSH Q1H PRN PRN Reason: Pain (severe 7-10) Cefazolin Sodium/Dextrose 1 gm (/ Premix) 50 mls @ 100 mls/hr IV ONETIME ONE Stop: 08/20/17 11:02 Cefazolin Sodium/Dextrose (Ancef) Confirm Administered Dose 50 mls @ as directed .ROUTE .STK-MED ONE Stop: 08/24/17 08:07 Ketorolac Tromethamine (Toradol) Confirm Administered Dose 30 mg .ROUTE .STK- MED ONE Stop: 08/24/17 07:59 Lidocaine (Xylocaine-Mpf 2%) Confirm Administered Dose 10 ml .ROUTE .STK-MED ONE Stop: 08/24/17 07:56 Midazolam HCl (Versed 1 Mg/Ml) Confirm Administered Dose 2 mg .ROUTE .STK-MED ONE Stop: 08/24/17 07:56 Neostigmine Methylsulfate (Neostigmine) Confirm Administered Dose 5 mg .ROUTE .STK-MED ONE Stop: 08/24/17 07:59 Ondansetron HCl (Zofran) Confirm Administered Dose 8 mg .ROUTE .STK-MED ONE Stop: 08/24/17 07:59 Oxycodone/Acetaminophen (Percocet 325-5 Mg) 2 tab PO Q4H PRN PRN Reason: Pain Last Admin: 08/24/17 12:56 Dose: 2 tab Pantoprazole Sodium (Protonix Iv) 40 mg IVPUSH DAILY ONE Stop: 08/24/17 15:31 Propofol (Diprivan 20 Ml) Confirm Administered Dose 400 mg .ROUTE .STK-MED ONE Stop: 08/24/17 07:56 Rocuronium [place] (Zemuron) Confirm Administered Dose 100 mg .ROUTE .STK-MED ONE Stop: 08/24/17 07:59 Scopolamine (Transderm-Scop) Confirm Administered Dose 1.5 mg .ROUTE .STK-MED ONE Stop: 08/24/17 08:51 - Exam Wound/Incisions: Dressing Dry and Intact General: Alert, Oriented, Moderate Distress HEENT: Pupils Equal Lungs: Normal Respiratory Effort Cardiovascular: Regular Rate GI/Abdominal Exam: Soft, Non-Tender, No Distention, No Mass Extremities: Normal Inspection Skin: Warm, Dry, Intact Neurological: No New Focal Deficit Psy/Mental Status: Alert - Problem List & Annotations (1) Acute cholecystitis SNOMED Code(s): 68041234 Code(s): K81.0 - ACUTE CHOLECYSTITIS Status: Acute Current Visit: Yes - Problem List Review Problem List Initiated/Reviewed/Updated: Yes - My Orders Last 24 Hours: Active Orders 24 hr Category Date Time Status Intake and Output [RC] QSHIFT Care 08/24/17 15:13 Active Oxygen Therapy [RC] PRN Care 08/24/17 15:13 Active RT Incentive Spirometry [RC] ASDIRECTED Care 08/24/17 15:13 Active Ready for Discharge [RC] PER UNIT ROUTINE Care 08/24/17 10:49 Inactive Up ad Radha [RC] ASDIRECTED Care 08/24/17 15:13 Active Vital Signs [RC] PER UNIT ROUTINE Care 08/24/17 15:13 Active Clear Liquid Diet [DIET] Diet 08/24/17 Dinner Active CBC W/O DIFF,HEMOGRAM [HEME] AM Lab 08/25/17 05:11 Ordered CMP [COMPREHENSIVE METABOLIC PN,CMP] [CHEM] Stat Lab 08/24/17 15:37 Received COMPREHENSIVE METABOLIC PN,CMP [CHEM] AM Lab 08/25/17 05:11 Ordered Calcium Carbonate [Tums] Med 08/24/17 14:28 Active 500 mg PO Q2HR PRN Cyclobenzaprine [Flexeril] Med 08/24/17 14:28 Active 5 mg PO TID PRN HYDROmorphone/Normal Saline [Dilaudid GEODETIC SURVEYOR 6 MG in NS 30 Med 08/24/17 15:39 Active ML] 0 mg IV ASDIRECTED PRN Lactated Ringers [Ringers, Lactated] 1,000 ml Med 08/24/17 16:00 Ordered IV .BOLUS Ondansetron [Zofran] Med 08/24/17 15:13 Active 4 mg IVPUSH Q6H PRN Promethazine [Phenergan] Med 08/24/17 15:13 Active 12.5 mg IM Q6H PRN diphenhydrAMINE [Benadryl] Med 08/24/17 15:13 Active 25 mg PO Q4H PRN Medication Orders Calcium Carbonate/Glycine (Tums) 500 mg PO Q2HR PRN PRN Reason: Indigestion Last Admin: 08/24/17 14:47 Dose: 500 mg Cyclobenzaprine HCl (Flexeril) 5 mg PO TID PRN PRN Reason: Muscle Spasm Last Admin: 08/24/17 14:47 Dose: 5 mg Diphenhydramine HCl (Benadryl) 25 mg PO Q4H PRN PRN Reason: Itching Hydromorphone HCl (Dilaudid Tank Hoop Bender 6 Mg In Ns 30 Ml) 0 mg IV ASDIRECTED PRN; Protocol PRN Reason: Abdominal Pain Lactated Ringer's (Ringers, Lactated) 1,000 mls @ 125 mls/hr IV ASDIRECTED BIJAN Lactated Ringer's (Ringers, Lactated) 1,000 mls @ 1,000 mls/hr IV .BOLUS BIJAN Ondansetron HCl (Zofran) 4 mg IVPUSH Q6H PRN PRN Reason: Nausea/Vomiting Promethazine HCl (Phenergan) 12.5 mg IM Q6H PRN PRN Reason: Nausea Sodium Chloride (Saline Flush) 10 ml FLUSH ASDIRECTED PRN PRN Reason: Keep Vein Open Sodium Chloride (Saline Flush) 2.5 ml FLUSH ASDIRECTED PRN PRN Reason: Keep Vein Open - Plan Plan (Free Text/Narrative):: Will admit patient overnight for pain control. CBC and CMP drawn stat. CBC shows elevated WBC at 19K which is most likely due to the acute inflamation of the gallbladder and stress from the surgery. Hgb is 15 which is concentrated. Awaiting CMP. -Pain: IV dilaudid GEODETIC SURVEYOR -CV: Currently stable -GI: clear liquids ok for now. Abdomen is soft, no rebound or guarding. Appropriately tender in RUQ. -Renal: 1L bolus of LR. Monitor UOP closely. -ID: Given that gallbladder was acutely inflamed will start on zosyn and monitor WBC. -Px: SCDs, IV protonix given.
[2017-08-24 17:04] LABS: CHLORIDE,CL 103 mmol/L (98-107); SODIUM,NA 138 mmol/L (136-148)
[2017-08-24] MEDS: Piperacillin/Tazobactam 3.375 GM in Sodium Chloride 0.9% 50 ML IV SCH ×2 (17:18→22:35)
[2017-08-24] MEDS: Lactated Ringers 1,000 ML IV SCH (20:30)
[2017-08-24] MEDS: Sucralfate 1 GM Tab PO SCH (20:44)
[2017-08-25] MEDS: Piperacillin/Tazobactam 3.375 GM in Sodium Chloride 0.9% 50 ML IV SCH ×3 (03:58→17:03)
[2017-08-25] MEDS: Lactated Ringers 1,000 ML IV SCH ×2 (04:55→12:54)
[2017-08-25] MEDS: Sucralfate 1 GM Tab PO SCH ×3 (06:40→17:01)
[2017-08-25 06:43] LABS: CHLORIDE,CL 103 mmol/L (98-107); SODIUM,NA 138 mmol/L (136-148)
--- NOTE | 2017-08-25 08:13 | PCM.SURGPN ---
- General Info Date of Service: 08/25/17 Date of Surgery/Procedure: 08/24/17 POD#: 1 Post-Op Diagnosis: acute cholecystitis Functional Status: Reports: Pain Controlled - Review of Systems Pulmonary: Reports: No Symptoms Cardiovascular: Reports: No Symptoms Gastrointestinal: Reports: Abdominal Pain, Decreased Appetite - Patient Data Vitals - Most Recent: Last Vital Signs Temp 37.4 C 08/25/17 04:00 Pulse 72 08/25/17 04:00 Resp 16 08/25/17 04:00 BP 95/50 L 08/25/17 04:00 Pulse Ox 91 L 08/25/17 04:00 Weight - Most Recent: 66.224 kg I&O - Last 24 Hours: Intake & Output 08/24/17 08/25/17 08/25/17 22:59 06:59 14:59 Intake Total 3850 1174 Output Total 45 1960 Balance 3805 -786 Lab Results Last 24 Hrs: Laboratory Results - last 24 hr 08/24/17 08/24/17 08/25/17 Range/Units 15:37 15:37 05:56 WBC 19.01 H 11.90 H (4.0-11.0) K/uL RBC 4.68 4.42 L (4.50-5.90) M/uL Hgb 15.0 14.1 (13.0-17.0) g/dL Hct 44.3 42.3 (38.0-50.0) % MCV 94.7 95.7 (80.0-98.0) fL MCH 32.1 H 31.9 (27.0-32.0) pg MCHC 33.9 33.3 (31.0-37.0) g/dL RDW Std Deviation 48.1 46.1 (28.0-62.0) fl RDW Coeff of Marial[place] 14 14 (11.0-15.0) % Plt Count 311 304 (150-400) K/uL MPV 10.00 10.20 (7.40-12.00) fL Nucleated RBC % 0.0 /100WBC Nucleated RBCs # 0 K/uL Sodium 138 (136-148) mmol/L Potassium 4.8 (3.5-5.1) mmol/L Chloride 103 (98-107) mmol/L Carbon Dioxide 27.3 (21.0-32.0) mmol/L BUN 12 (7.0-18.0) mg/dL Creatinine 1.0 (0.8-1.3) mg/dL Est Cr Clr Drug Dosing 89.62 mL/min Estimated GFR (MDRD) > 60.0 ml/min Glucose 106 (74-106) mg/dL Calcium 8.7 (8.5-10.1) mg/dL Total Bilirubin 0.4 (0.2-1.0) mg/dL AST 64 H (15-37) IU/L ALT 117 H (14-63) IU/L Alkaline Phosphatase 94 (46-116) U/L Total Protein 6.5 (6.4-8.2) g/dL Albumin 3.3 L (3.4-5.0) g/dL Globulin 3.2 (2.0-3.5) g/dL Albumin/Globulin Ratio 1.0 L (1.3-2.8) / Range/Units 05:56 WBC (4.0-11.0) K/uL RBC (4.50-5.90) M/uL Hgb (13.0-17.0) g/dL Hct (38.0-50.0) % MCV (80.0-98.0) fL MCH (27.0-32.0) pg MCHC (31.0-37.0) g/dL RDW Std Deviation (28.0-62.0) fl RDW Coeff of Mar[place] (11.0-15.0) % Plt Count (150-400) K/uL MPV (7.40-12.00) fL Nucleated RBC % /100WBC Nucleated RBCs # K/uL Sodium 138 (136-148) mmol/L Potassium 3.9 (3.5-5.1) mmol/L Chloride 103 (98-107) mmol/L Carbon Dioxide 29.2 (21.0-32.0) mmol/L BUN 11 (7.0-18.0) mg/dL Creatinine 1.0 (0.8-1.3) mg/dL Est Cr Clr Drug Dosing 89.62 mL/min Estimated GFR (MDRD) > 60.0 ml/min Glucose 103 (74-106) mg/dL Calcium 8.4 L (8.5-10.1) mg/dL Total Bilirubin 0.9 (0.2-1.0) mg/dL AST 57 H (15-37) IU/L ALT 118 H (14-63) IU/L Alkaline Phosphatase 89 (46-116) U/L Total Protein 6.0 L (6.4-8.2) g/dL Albumin 3.2 L (3.4-5.0) g/dL Globulin 2.8 (2.0-3.5) g/dL Albumin/Globulin Ratio 1.1 L (1.3-2.8) Med Orders - Current: Current Medications Calcium Carbonate/Glycine (Tums) 500 mg PO Q2HR PRN PRN Reason: Indigestion Last Admin: 08/24/17 14:47 Dose: 500 mg Cyclobenzaprine HCl (Flexeril) 5 mg PO TID PRN PRN Reason: Muscle Spasm Last Admin: 08/24/17 14:47 Dose: 5 mg Diphenhydramine HCl (Benadryl) 25 mg PO Q4H PRN PRN Reason: Itching Hydromorphone HCl (Dilaudid) 4 mg PO Q4H PRN PRN Reason: Abdominal Pain Lactated Ringer's (Ringers, Lactated) 1,000 mls @ 125 mls/hr IV ASDIRECTED [facility] Last Admin: 08/25/17 04:55 Dose: 125 mls/hr Lactated Ringer's (Ringers, Lactated) 1,000 mls @ 1,000 mls/hr IV .BOLUS [facility] Last Admin: 08/24/17 16:10 Dose: 1,000 mls/hr Piperacillin Sod/Tazobactam (Sod 3.375 gm/ Sodium Chloride) 50 mls @ 100 mls/ hr IV Q6H [facility] Last Admin: 08/25/17 03:58 Dose: 100 mls/hr Ondansetron HCl (Zofran) 4 mg IVPUSH Q6H PRN PRN Reason: Nausea/Vomiting Promethazine HCl (Phenergan) 12.5 mg IM Q6H PRN PRN Reason: Nausea Sodium Chloride (Saline Flush) 10 ml FLUSH ASDIRECTED PRN PRN Reason: Keep Vein Open Sodium Chloride (Saline Flush) 2.5 ml FLUSH ASDIRECTED PRN PRN Reason: Keep Vein Open Sucralfate (Carafate) 1 gm PO TIDAC BIJAN Last Admin: 08/25/17 06:40 Dose: 1 gm Discontinued Medications Bupivacaine HCl (Marcaine 0.5%) Confirm Administered Dose 30 ml .ROUTE .STK-MED ONE Stop: 08/24/17 07:46 Fentanyl (Sublimaze) Confirm Administered Dose 100 mcg .ROUTE .STK-MED ONE Stop: 08/24/17 07:56 Fentanyl (Sublimaze) Confirm Administered Dose 250 mcg .ROUTE .STK-MED ONE Stop: 08/24/17 07:57 Fentanyl (Sublimaze) 50 mcg IVPUSH Q5M PRN PRN Reason: Pain (severe 7-10) Stop: 08/25/17 09:17 Last Admin: 08/24/17 11:49 Dose: 50 mcg Glycopyrrolate (Robinul) Confirm Administered Dose 0.6 mg .ROUTE .STK-MED ONE Stop: 08/24/17 07:59 Hydromorphone HCl (Dilaudid) 1 mg IVPUSH ONETIME ONE Stop: 08/24/17 14:09 Last Admin: 08/24/17 14:24 Dose: 1 mg Hydromorphone HCl (Dilaudid) 0.5 mg IVPUSH Q1H PRN PRN Reason: Pain (severe 7-10) Hydromorphone HCl (Dilaudid [employer] 6 Mg In Ns 30 Ml) 0 mg IV ASDIRECTED PRN; Protocol PRN Reason: Abdominal Pain Last Admin: 08/24/17 16:32 Dose: 6 mg Cefazolin Sodium/Dextrose 1 gm (/ Premix) 50 mls @ 100 mls/hr IV ONETIME ONE Stop: 08/20/17 11:02 Cefazolin Sodium/Dextrose (Ancef) Confirm Administered Dose 50 mls @ as directed .ROUTE .STK-MED ONE Stop: 08/24/17 08:07 Ketorolac Tromethamine (Toradol) Confirm Administered Dose 30 mg .ROUTE .STK- MED ONE Stop: 08/24/17 07:59 Lidocaine (Xylocaine-Mpf 2%) Confirm Administered Dose 10 ml .ROUTE .STK-MED ONE Stop: 08/24/17 07:56 Midazolam HCl (Versed 1 Mg/Ml) Confirm Administered Dose 2 mg .ROUTE .STK-MED ONE Stop: 08/24/17 07:56 Neostigmine Methylsulfate (Neostigmine) Confirm Administered Dose 5 mg .ROUTE .STK-MED ONE Stop: 08/24/17 07:59 Ondansetron HCl (Zofran) Confirm Administered Dose 8 mg .ROUTE .STK-MED ONE Stop: 08/24/17 07:59 Oxycodone/Acetaminophen (Percocet 325-5 Mg) 2 tab PO Q4H PRN PRN Reason: Pain Last Admin: 08/24/17 12:56 Dose: 2 tab Pantoprazole Sodium (Protonix Iv) 40 mg IVPUSH DAILY ONE Stop: 08/24/17 15:31 Last Admin: 08/24/17 17:04 Dose: 40 mg Propofol (Diprivan 20 Ml) Confirm Administered Dose 400 mg .ROUTE .STK-MED ONE Stop: 08/24/17 07:56 Rocuronium Adell (Zemuron) Confirm Administered Dose 100 mg .ROUTE .STK-MED ONE Stop: 08/24/17 07:59 Scopolamine (Transderm-Scop) Confirm Administered Dose 1.5 mg .ROUTE .STK-MED ONE Stop: 08/24/17 08:51 - Exam Wound/Incisions: Healing Well, Dressing Dry and Intact General: Alert, Oriented Lungs: Normal Respiratory Effort Cardiovascular: Regular Rate GI/Abdominal Exam: Soft, No Distention, Tender (appropriately tender over RUQ incisions ). No: Guarding, Rigid, Rebound - Problem List & Annotations (1) Acute cholecystitis SNOMED Code(s): 92918808 Code(s): K81.0 - ACUTE CHOLECYSTITIS Status: Acute Current Visit: Yes - Problem List Review Problem List Initiated/Reviewed/Updated: Yes - My Orders Last 24 Hours: Active Orders 24 hr Category Date Time Status Intake and Output [RC] QSHIFT Care 08/24/17 15:13 Active Oxygen Therapy [RC] PRN Care 08/24/17 15:13 Active RT Incentive Spirometry [RC] ASDIRECTED Care 08/24/17 15:13 Active Ready for Discharge [RC] PER UNIT ROUTINE Care 08/24/17 10:49 Inactive Up ad Radha [RC] ASDIRECTED Care 08/24/17 15:13 Active Vital Signs [RC] Q4H Care 08/24/17 15:13 Active Clear Liquid Diet [DIET] Diet 08/24/17 Dinner Active Regular Diet [DIET] Diet 08/25/17 Lunch Active Calcium Carbonate [Tums] Med 08/24/17 14:28 Active 500 mg PO Q2HR PRN Cyclobenzaprine [Flexeril] Med 08/24/17 14:28 Active 5 mg PO TID PRN HYDROmorphone [Dilaudid] Med 08/25/17 07:11 Active 4 mg PO Q4H PRN Lactated Ringers [Ringers, Lactated] 1,000 ml Med 08/24/17 16:00 Active IV .BOLUS Ondansetron [Zofran] Med 08/24/17 15:13 Active 4 mg IVPUSH Q6H PRN Piperacillin/Tazobactam [Piperacil-Tazobact] 3.375 gm Med 08/24/17 16:30 Active Sodium Chloride 0.9% [Normal Saline] 50 ml IV Q6H Promethazine [Phenergan] Med 08/24/17 15:13 Active 12.5 mg IM Q6H PRN Sucralfate [Carafate] Med 08/24/17 17:00 Active 1 gm PO TIDAC diphenhydrAMINE [Benadryl] Med 08/24/17 15:13 Active 25 mg PO Q4H PRN Medication Orders Calcium Carbonate/Glycine (Tums) 500 mg PO Q2HR PRN PRN Reason: Indigestion Last Admin: 08/24/17 14:47 Dose: 500 mg Cyclobenzaprine HCl (Flexeril) 5 mg PO TID PRN PRN Reason: Muscle Spasm Last Admin: 08/24/17 14:47 Dose: 5 mg Diphenhydramine HCl (Benadryl) 25 mg PO Q4H PRN PRN Reason: Itching Hydromorphone HCl (Dilaudid) 4 mg PO Q4H PRN PRN Reason: Abdominal Pain Lactated Ringer's (Ringers, Lactated) 1,000 mls @ 125 mls/hr IV ASDIRECTED [facility]IJAN Last Admin: 08/25/17 04:55 Dose: 125 mls/hr Infusion: 08/25/17 04:30 Dose: 125 mls/hr Admin: 08/24/17 20:30 Dose: 125 mls/hr Lactated Ringer's (Ringers, Lactated) 1,000 mls @ 1,000 mls/hr IV .BOLUS [facility] Last Admin: 08/24/17 16:10 Dose: 1,000 mls/hr Piperacillin Sod/Tazobactam (Sod 3.375 gm/ Sodium Chloride) 50 mls @ 100 mls/ hr IV Q6H [facility] Last Admin: 08/25/17 03:58 Dose: 100 mls/hr Infusion: 08/24/17 23:05 Dose: 100 mls/hr Admin: 08/24/17 22:35 Dose: 100 mls/hr Infusion: 08/24/17 17:48 Dose: 100 mls/hr Admin: 08/24/17 17:18 Dose: 100 mls/hr Ondansetron HCl (Zofran) 4 mg IVPUSH Q6H PRN PRN Reason: Nausea/Vomiting Promethazine HCl (Phenergan) 12.5 mg IM Q6H PRN PRN Reason: Nausea Sodium Chloride (Saline Flush) 10 ml FLUSH ASDIRECTED PRN PRN Reason: Keep Vein Open Sodium Chloride (Saline Flush) 2.5 ml FLUSH ASDIRECTED PRN PRN Reason: Keep Vein Open Sucralfate (Carafate) 1 gm PO TIDAC [facility] Last Admin: 08/25/17 06:40 Dose: 1 gm Admin: 08/24/17 20:44 Dose: 1 gm - Plan Plan (Free Text/Narrative):: -D/C C[employer]IED [employer] this morning. Will switch to oral Dilaudid 1-2 tabs q 4hr prn pain -Vitals stable overnight. -Advance diet to regular. I explained to the patient that he should eat small frequent meals throughout the day and drink plenty water. He denies any nausea. -The patient's white count is coming down. Most likely he had a stress leukocytosis. I will not send him home on any antibiotics. -Dispo: Once patient's pain is controlled on oral medications, is tolerating a regular diet, and he ambulates without assistance he can be discharged home. Most likely that is today.
[2017-08-25] MEDS ORDERED: Pantoprazole 40 MG Tab.CR PO SCH (08:15)
[2017-08-25] MEDS: HYDROmorphone 2 MG Tab PO PRN ×2 (09:19→17:01)
[2017-08-25] MEDS ORDERED: Acetaminophen 325 MG Tab PO PRN (12:17)
--- NOTE | 2017-08-25 15:05 | PCM48HPAN ---
Post Anesthesia Note - EVALUATION WITHIN 48HRS OF ANESTHETIC Vital Signs in Normal Range: Yes Patient Participated in Evaluation: Yes Respiratory Function Stable: Yes Airway Patent: Yes Cardiovascular Function Stable: Yes Hydration Status Stable: Yes Pain Control Satisfactory: Yes Nausea and Vomiting Control Satisfactory: Yes Mental Status Recovered: Yes Resp Rate: 14
[2017-08-26] MEDS ORDERED: Pantoprazole 40 MG Tab.CR PO SCH (07:30)
== END 2017-08-25 17:30 | disposition home or self-care (01) ==
LOC: MW.SDS 08:03 → MW.MS 16:17 → MW.SDS 08-25 17:30
PROVIDERS: ATTEND Surgery
DX: K80.11 Calculus of gallbladder with chronic cholecystitis with obstruction (principal); K82.8 Other specified diseases of gallbladder; F17.210 Nicotine dependence, cigarettes, uncomplicated; K21.9 Gastro-esophageal reflux disease without esophagitis; Z79.899 Other long term (current) drug therapy
CPT/HCPCS: 36415; 47562; 80053; 85027; A9270; C9113; J0690; J1170; J2250; J2405; J2543; J3010; J7050; J7120; 00790; 88304; J1885; J2704